=== PATIENT | female | born 1955 | race Caucasian/White ===

== ENCOUNTER 2022-06-22 10:37 | Outpatient (CLI) | payer MEDICARE, OTHER | END 2022-06-22 10:38 | disposition home or self-care (01) | LOC: SCSRAD 10:37 | PROVIDERS: ATTEND Internal Medicine Rheumatology | DX: M81.0 Age-related osteoporosis without current pathological fracture (principal); M47.894 Other spondylosis, thoracic region; M46.04 Spinal enthesopathy, thoracic region; M41.84 Other forms of scoliosis, thoracic region | CPT/HCPCS: 72072 ==